=== PATIENT | female | born 2005 | race Caucasian/White ===

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

== ENCOUNTER 2023-02-17 11:10 | Emergency (ER) | payer MEDICAID, SELFPAY ==
[2023-02-17 11:24] VITALS: BP 145/96; PULSE 77; RESP 16; TEMP 36.9; O2SAT 99
--- NOTE | 2023-02-17 12:02 | ED.URI ---
HPI - URI/Sore Throat General Chief Complaint: Upper Respiratory Infection Stated Complaint: fever,headache,stuffy nose,throwing up Time Seen by Provider: 02/17/23 12:03 Source: patient and RN notes reviewed Mode of arrival: ambulatory Limitations: no limitations History of Present Illness HPI Narrative: 17 y/o female presented for c/o sore throat, headache, nasal congestion and nausea/vomiting over the past 4 days. Last emesis was this morning. Tolerating fluids and foods without difficulty. Maintaining secretions. Taking over the counter flu medication. Reports sister with similar symptoms last week. MD elicited complaint: cough Related Data Allergies Allergy/AdvReac Type Severity Reaction Status Date / Time No Known Allergies Allergy Mild Verified 02/17/23 11:16 Review of Systems Review of Systems: CONSTITUTIONAL: Endorses malaise, denies chills, sweats, fever EYES: Denies visual changes, redness, or discharge ENT: Reports rhinorrhea, congestion, sinus pain, otalgia, sore throat CARDIOVASCULAR: Denies chest pain, palpitations, edema RESPIRATORY: Reports cough, post nasal drainage. Denies dyspnea GASTROINTESTINAL: Reports nausea, vomiting Denies abdominal pain, diarrhea SKIN: Denies rash or itching MUSCULOSKELETAL: Endorses myalgia NEUROLOGIC: Reports headache PMFSH Past Medical History Medical History Pneumonia Strep pharyngitis Exam Narrative: GENERAL: Ill-appearing, nontoxic no acute distress. HEAD: Normocephalic EYES: conjunctivae clear ENT: Mucous membranes moist. TM pearly dutton with dull light reflex bilaterally; no tragal tenderness. slightly muffled voice, oropharynx erythematous with tonsillar swelling 3+ and exudate, no drooling, no hoarseness, no trismus, uvula midline. No tripod positioning, soft palate or pharyngeal wall bulging NECK: Supple. bilateral anterior cervical lymphadenopathy CHEST: Clear to auscultation, breath sounds equal. No wheezing, rhonchi, rales, or stridor. No respiratory distress, speaks in full sentences. HEART: Regular rate and rhythm. No murmur heard. SKIN: Warm, dry, no rash. NEURO: Alert and oriented x3. PSYCH: Normal mood and affect Course Course Emergency Course: Patient is aware of diagnosis, understands and agrees to treatment plan. Anticipatory guidance given. Patient agrees to follow-up as directed and is aware of reasons to seek care at the emergency department. Portions of this record may have been created with voice recognition software Level of Care: Express Care Visit Vital Signs Vital signs: Vital Signs Temperature 98.5 F 02/17/23 11:24 Pulse Rate 77 02/17/23 11:24 Respiratory Rate 16 02/17/23 11:24 Blood Pressure 145/96 H 02/17/23 11:24 Pulse Oximetry 99 02/17/23 11:24 Oxygen Delivery Room Air 02/17/23 11:24 Temperature 98.5 F 02/17/23 11:24 Pulse Rate 77 02/17/23 11:24 Respiratory Rate 16 02/17/23 11:24 Blood Pressure 145/96 H 02/17/23 11:24 Pulse Oximetry 99 02/17/23 11:24 Oxygen Delivery Room Air 02/17/23 11:24 reviewed MDM - URI/Sore Throat MDM Narrative Medical decision making narrative: Negative strep, COVID, flu reviewed with patient. Will treat for strep based on PE and CC. Discussed physical exam findings. Advised supportive measures and signs/symptoms to go to the ER. Pt is appropriate for outpt treatment and f/u. Differential Diagnosis Differential diagnosis: Likely upper respiratory infection, sinusitis and viral infection Lab Data Labs: Lab Results 02/17/23 Range/Units 11:28 POC SARS CoV-2 Ag Negative (Negative) Influenza A Screen Negative Reference Range: Negative Influenza B Screen Negative Reference Range: Negative Strep Screen Presumptive Negative
== END 2023-02-17 12:14 | disposition home or self-care (01) ==
PROVIDERS: Emergency Provider Nurse Practitioner Family
DX: J06.9 Acute upper respiratory infection, unspecified (principal); Z20.822 Contact with and (suspected) exposure to COVID-19
CPT/HCPCS: 87081; 87426; 87804; 87880; 99213; C9803; G0463

== ENCOUNTER 2023-10-13 13:13 | Emergency (ER) | payer OTHER, SELFPAY ==
[2023-10-13 13:31] VITALS: BP 133/81; PULSE 67; RESP 16; TEMP 37.4; O2SAT 99
[2023-10-13 13:38] LABS: EDUABILI Negative; EDUABLOOD 3+; EDUACOLOR1 Yellow; EDUAGLUCOSE Negative; EDUAKETONE Trace; EDUALEUKO 3+; EDUANITRATE Negative; EDUAPROTEIN 2+; EDUAUROBILI 0.2
--- NOTE | 2023-10-13 13:45 | ED.FEMALEGU ---
HPI - Female Genitourinary General Chief complaint: Urogenital-Female Stated complaint: urinary issue Time Seen by Provider: 10/13/23 13:41 Source: patient and RN notes reviewed Mode of arrival: ambulatory Limitations: no limitations History of Present Illness HPI Narrative: Patient presents today complaining of dysuria, suprapubic pain, frequency since this morning. Denies hematuria, fever, back pain, or any additional symptoms. She has been taking ibuprofen without relief. No recent antibiotic use. Related Data Allergies Allergy/AdvReac Type Severity Reaction Status Date / Time No Known Allergies Allergy Mild Verified 02/17/23 11:16 Review of Systems Review of Systems: CONSTITUTIONAL: Denies body aches, fever, chills, or sweats. EYES: Denies visual changes, redness, or discharge. ENT: Denies rhinorrhea, congestion, sore throat, or otalgia. CARDIOVASCULAR: Denies chest pain, palpitations, or edema. RESPIRATORY: Denies cough or dyspnea. GASTROINTESTINAL: Denies nausea, vomiting, or diarrhea.+ suprapubic pain GENITOURINARY: + dysuria, frequency SKIN: Denies rash, itching, or wounds. MUSCULOSKELETAL: Denies back pain, joint pain, or myalgia. NEUROLOGIC: Denies headache, numbness, tingling, or weakness. PSYCH: Denies depression or anxiety. [facility] Past Medical History Medical History Pneumonia Strep pharyngitis Comments At time of signature, I have reviewed and agree with nursing past medical, surgical, social and family history unless otherwise noted. Please see nursing chart for further information. There is no relevant family history pertinent to the presenting complaint Exam Narrative: GENERAL: Well-appearing, well-nourished, and in no acute distress. HEAD: Normocephalic, atraumatic. EYES: EOMI. No redness or drainage. Conjunctivae normal. ENT: Mucous membranes pink and moist. NECK: Normal AROM. CHEST: No respiratory distress. Clear to auscultation. HEART: Regular rate and rhythm. No murmur appreciated. ABDOMEN: Soft,nondistended, normal active bowel sounds.+ suprapubic tenderness.-CVAT EXTREMITIES: Normal range of motion. No edema. SKIN: Warm, dry, no rash. Capillary refill normal. Normal skin turgor. NEURO: No focal deficits. Alert and oriented x3. Gait steady. PSYCH: Normal affect. No signs of depression or anxiety. Course Course Level of Care: Express Care Visit Vital Signs Vital signs: Vital Signs Temperature 99.3 F 10/13/23 13:31 Pulse Rate 67 10/13/23 13:31 Respiratory Rate 16 10/13/23 13:31 Blood Pressure 133/81 10/13/23 13:31 Pulse Oximetry 99 10/13/23 13:31 Oxygen Delivery Room Air 10/13/23 13:31 Temperature 99.3 F 10/13/23 13:31 Pulse Rate 67 10/13/23 13:31 Respiratory Rate 16 10/13/23 13:31 Blood Pressure 133/81 10/13/23 13:31 Pulse Oximetry 99 10/13/23 13:31 Oxygen Delivery Room Air 10/13/23 13:31 Reviewed MDM - Female Genitourinary MDM Narrative Medical decision making narrative: Urinalysis is consistent with UTI. Prescription for Augmentin sent to pharmacy. Anticipatory guidance and ED precautions given Differential Diagnosis Differential diagnosis: Likely urinary tract infection, vaginitis and cystitis Lab Data Attestation: I reviewed the patient's lab results. Labs: Lab Results 10/13/23 Range/Units 13:36 POC Urine Color Yellow POC Urine Clarity Pending POC Urine pH 6.0 POC Ur Specif Wilson 1.030 POC Urine Protein 2+ POC Ur Glucose (UA) Negative POC Urine Ketones Trace POC Urine Blood 3+ POC Urine Nitrite Negative POC Urine Bilirubin Negative POC Urine Urobilinogen 0.2 POC U Leukocyte Esteras 3+ Misc Test Comment None Critical Care Time Critical Care Time Critical Care Time: No Discharge Plan Discharge Clinical Impression: Urinary tract infection Qualifiers: Urinary tract infection t
== END 2023-10-13 13:52 | disposition home or self-care (01) ==
PROVIDERS: Emergency Provider Nurse Practitioner
DX: N30.01 Acute cystitis with hematuria (principal); B95.7 Other staphylococcus as the cause of diseases classified elsewhere
CPT/HCPCS: 81003; 87077; 87086; 87088; 99213; G0463

== ENCOUNTER 2023-12-05 16:21 | Emergency (ER) | payer OTHER, SELFPAY ==
[2023-12-05 16:49] VITALS: BP 151/91; PULSE 83; RESP 16; TEMP 36.5; O2SAT 99
--- NOTE | 2023-12-05 17:57 | ED.GENADULT ---
HPI - General Adult General Chief complaint: Upper Respiratory Infection Stated complaint: sweating,throwing up,HERNANDEZ, body aches Source: patient Mode of arrival: ambulatory Limitations: no limitations History of Present Illness HPI narrative: Patient presents for evaluation of sick symptoms since yesterday. Symptoms include fever, chills, sore throat, bilateral otalgia, nausea and vomiting. No cough, shortness of breath or diarrhea. Her sister currently has COVID and they live with one another. She does vape. She tried taking OTC cough and cold medication without much improvement thereafter. Related Data Allergies Allergy/AdvReac Type Severity Reaction Status Date / Time No Known Allergies Allergy Mild Verified 12/05/23 16:56 Review of Systems Review of Systems: CONSTITUTIONAL: Reports fever and chills EYES: Denies visual changes, redness, or discharge. ENT: Reports sore throat and bilateral otalgia CARDIOVASCULAR: Denies chest pain, palpitations, or edema. RESPIRATORY: Denies cough or dyspnea. GASTROINTESTINAL: Reports nausea and vomiting. Denies diarrhea GENITOURINARY: Denies dysuria or hematuria. SKIN: Denies rash or itching. MUSCULOSKELETAL: Denies back pain, joint pain, or myalgia. NEUROLOGIC: Denies headache, numbness, dizziness, or weakness. PSYCHIATRIC: Denies anxiety or depression. [facility] Past Medical History Medical History Pneumonia Strep pharyngitis Surgical History Surgical History No pertinent past surgical history Family History Family History Mother Family history non-contributory Social History Social History Smoking status: Current every day smoker Tobacco type: e-cigarettes/vaping Substance use: never Living arrangements: with family Gender identity (if verbalized by the patient): Female Spiritual care concerns: No Exam Narrative: GENERAL: Well-appearing, well-nourished, and in no acute distress. HEAD: Normocephalic, atraumatic. EYES: PERRLA and EOMI. ENT: Nares clear, no rhinorrhea or epistaxis. Mucous membranes moist. Posterior pharyngeal erythema without exudate. Uvula is midline. Left tympanic membrane is bulging. NECK: Supple. No adenopathy or masses. No carotid bruits or JVD CHEST: Clear to auscultation. No respiratory distress. No wheezes rales or rhonchi HEART: Regular rate and rhythm. No murmur heard. Normal peripheral pulses. ABDOMEN: Soft, nontender, nondistended, normal active bowel sounds. EXTREMITIES: Normal range of motion. No edema. SKIN: Warm, dry, no rash. NEURO: No focal deficits. Alert and oriented x3. PSYCH: Normal mood and affect. Course Course Emergency Course: This is a 17-year-old female who presented for evaluation of sick symptoms after recent COVID exposure. COVID here was negative. Advised that she recheck her test in the coming days at home. I will provide her with a prescription for Zofran. She does have evidence of otitis media so will discharge with Augmentin. Follow-up with primary provider. Go to the ER for worsening symptoms. Patient in agreement with plan of care. Level of Care: Express Care Visit Vital Signs Vital signs: Vital Signs Temperature 36.5 C 12/05/23 16:49 Pulse Rate 83 12/05/23 16:49 Respiratory Rate 16 12/05/23 16:49 Blood Pressure 151/91 H 12/05/23 16:49 Pulse Oximetry 99 12/05/23 16:49 Oxygen Delivery Room Air 12/05/23 16:49 Temperature 36.5 C 12/05/23 16:49 Pulse Rate 83 12/05/23 16:49 Respiratory Rate 16 12/05/23 16:49 Blood Pressure 151/91 H 12/05/23 16:49 Pulse Oximetry 99 12/05/23 16:49 Oxygen Delivery Room Air 12/05/23 16:49 Medical Decision Making Vital Signs Vital Signs: Vital Signs T
== END 2023-12-05 18:00 | disposition home or self-care (01) ==
PROVIDERS: Emergency Provider Nurse Practitioner
DX: H66.92 Otitis media, unspecified, left ear (principal); Z20.822 Contact with and (suspected) exposure to COVID-19; F17.290 Nicotine dependence, other tobacco product, uncomplicated
CPT/HCPCS: 87426; 99213; G0463

== ENCOUNTER 2024-01-31 10:42 | Emergency (ER) | payer OTHER, SELFPAY ==
[2024-01-31 10:50] VITALS: BP 140/87; PULSE 77; RESP 20; TEMP 36.7; O2SAT 100
--- NOTE | 2024-01-31 10:57 | ED.FEMALEGU ---
HPI - Female Genitourinary General Chief complaint: Urogenital-Female Stated complaint: UTI Time Seen by Provider: 01/31/24 11:30 Source: patient and RN notes reviewed Mode of arrival: ambulatory Limitations: no limitations History of Present Illness HPI Narrative: 18-year-old female presents with concern for day history of urine frequency and dysuria. She reports some suprapubic pressure. She denies fever, body aches, chills, back pain, abdominal pain, nausea or vomiting. She denies hematuria MD elicited complaint: UTI Related Data Allergies Allergy/AdvReac Type Severity Reaction Status Date / Time No Known Allergies Allergy Mild Verified 01/31/24 10:56 Review of Systems Review of Systems: CONSTITUTIONAL: Denies malaise, chills, sweats, or fever. CARDIOVASCULAR: Denies chest pain, palpitations, or edema. RESPIRATORY: Denies cough or dyspnea. GASTROINTESTINAL: Denies abdominal pain, nausea, vomiting, diarrhea GENITOURINARY: Reports dysuria, frequency, suprapubic pressure. Denies flank pain or hematuria. SKIN: Denies rash or itching. MUSCULOSKELETAL: Denies back pain or myalgia. All systems reviewed & are unremarkable except as noted in HPI and below PMFSH Past Medical History Medical History Pneumonia Strep pharyngitis Surgical History Surgical History No pertinent past surgical history Family History Family History Mother Family history non-contributory Social History Social History Smoking status: Current every day smoker Tobacco type: e-cigarettes/vaping Substance use: never Living arrangements: with family Gender identity (if verbalized by the patient): Female Spiritual care concerns: No Comments At time of signature, agree with nursing past medical, surgical, social and family history. There is no relevant family history pertinent to the presenting complaint Exam Narrative: GENERAL: Well-appearing, well-nourished, and in no acute distress. HEAD: Normocephalic. EYES: PERRLA, conjunctivae clear. NECK: Supple. No lymphadenopathy CHEST: Clear to auscultation. No respiratory distress. HEART: Regular rate and rhythm. ABDOMEN: Soft, nontender upon palpation, nondistended, normal active bowel sounds, no palpable or pulsatile masses, no guarding. No CVA tenderness SKIN: Warm, dry, no rash. NEURO: Alert and oriented x3. PSYCH: Normal mood and affect Course Course Emergency Course: Patient is aware of diagnosis, understands and agrees to treatment plan. Anticipatory guidance given. Patient agrees to follow-up as directed and is aware of reasons to seek care at the emergency department. Portions of this record may have been created with voice recognition software Level of Care: Express Care Visit Vital Signs Vital signs: Vital Signs Temperature 98.1 F 01/31/24 10:50 Pulse Rate 77 01/31/24 10:50 Respiratory Rate 20 01/31/24 10:50 Blood Pressure 140/87 01/31/24 10:50 Pulse Oximetry 100 01/31/24 10:50 Oxygen Delivery Room Air 01/31/24 10:50 Temperature 98.1 F 01/31/24 10:50 Pulse Rate 77 01/31/24 10:50 Respiratory Rate 20 01/31/24 10:50 Blood Pressure 140/87 01/31/24 10:50 Pulse Oximetry 100 01/31/24 10:50 Oxygen Delivery Room Air 01/31/24 10:50 Reviewed. MDM - Female Genitourinary MDM Narrative Medical decision making narrative: Exam findings and UA show no acute concerns or changes; patient is non-toxic appearing and is in no distress. Patient is appropriate for outpatient treatment and follow-up. Differential Diagnosis Differential diagnosis: Likely urinary tract infection and cystitis Critical Care Time Critical Care Time Critical Care Time: No Discharge Plan Discharge Clini
[2024-01-31 11:43] LABS: BEDSIDEPREGUCG Negative (Negative)
== END 2024-01-31 11:41 | disposition home or self-care (01) ==
PROVIDERS: Emergency Provider Nurse Practitioner
DX: R30.0 Dysuria (principal); R35.0 Frequency of micturition; F17.290 Nicotine dependence, other tobacco product, uncomplicated
CPT/HCPCS: 81025; 87086; 99213; G0463

== ENCOUNTER 2024-03-07 09:25 | Emergency (ER) | payer OTHER, SELFPAY ==
--- NOTE | 2024-03-07 09:28 | ED_ITS ---
HPI - URI/Sore Throat General Chief Complaint: Upper Respiratory Infection Stated Complaint: Vomiting/Cough Time Seen by Provider: 03/07/24 09:45 Source: patient Mode of arrival: ambulatory Limitations: no limitations History of Present Illness HPI Narrative: Nona is a 18-year-old female patient presenting to the clinic today with complaints of feeling feverish, vomiting, sore throat, diarrhea, runny nose, and cough x2 days. She denies any chest pain or shortness of breath. MD elicited complaint: cough, sore throat and nasal congestion Related Data Allergies Allergy/AdvReac Type Severity Reaction Status Date / Time No Known Allergies Allergy Mild Verified 03/07/24 09:43 Review of Systems Review of Systems: Pertinent positives per HPI. Patient denies any rash, headache, visual changes, dizziness, shortness of breath, chest pain, palpitations, constipation, abdominal pain, or any urinary issues. [facility] Past Medical History Medical History Pneumonia Strep pharyngitis Surgical History Surgical History No pertinent past surgical history Family History Family History Mother Family history non-contributory Social History Social History Smoking status: Current every day smoker Tobacco type: e-cigarettes/vaping Substance use: never Living arrangements: with family Gender identity (if verbalized by the patient): Female Spiritual care concerns: No Comments At the time of my signature, I reviewed and agree with the nursing past medical, surgical, social, and family history. There is no relevant family history pertinent to the patient complaint. Exam Narrative: General: Well-developed, obese, in no apparent distress Head: Normocephalic, atraumatic Eyes: Pupils equally round and reactive to light bilaterally, EOM intact, sclera and conjunctive clear, no discharge, lids normal Ears: TMs intact and congested, ear canals clear, no drainage, grossly hearing normal. Nose: Nares patent, clear nasal discharge, no inflammation, no sinus tenderness. Mouth: Oral pharynx red with bilateral tonsillar enlargement without lesions or masses, good dentition, MMM. Neck: Supple, trachea midline, no enlargement of anterior or posterior cervical nodes, no thyroid masses or goiter palpable. Cardio: Regular rate and rhythm, s1 and s2 normal, no murmur appreciated. Resp: Clear to auscultation bilaterally, no rhonchi, rales, wheezing or rubs Abdomen: Soft, pliable, bowel sounds present in all quadrants, non-tender to palpation, no organomegly, no CVAT tenderness. Course Course Emergency Course: Portions of this record may have been created with voice recognition software. Level of Care: Express Care Visit Vital Signs Vital signs: Vital Signs Temperature 36.2 C L 03/07/24 09:43 Pulse Rate 82 03/07/24 09:43 Respiratory Rate 15 03/07/24 09:43 Blood Pressure 159/100 H 03/07/24 09:43 Temperature 36.2 C L 03/07/24 09:47 Pulse Rate 82 03/07/24 09:47 Respiratory Rate 15 03/07/24 09:47 Blood Pressure 159/100 H 03/07/24 09:47 Vital signs reviewed MDM - URI/Sore Throat MDM Narrative Medical decision making narrative: At the time of visit patient is resting comfortably on the exam table. Patient appears to be nontoxic. Labs: COVID, influenza, and strep test were all performed. All testing was negative. We will send strep for culture Plan: I suspect patient has URI/pharyngitis/viral syndrome. Will send in pres cription for Zofran for nausea. Patient may take Imodium as needed for diarrhea as long as there is no blood in his stool. Work note was given. Supportive measures were discussed with the patient and they voiced understanding discharge instructions and agrees to treatment plan. Return precautions reviewed Differential Diagnosis Differential diagnosis: Likely upper respiratory infection, otitis media, sinusitis, viral infection, bronchitis, influenza, pharyngitis and other (COVID) Lab Data Labs: Lab Results 03/07/24 Range/Units 09:59 POC Influenza A Ag Negative (Negative) POC Influenza B Ag Negative (Negative) POC SARS CoV-2 Ag Negative (Negative) POC Grp A Strep Screen Negative (Negative) Discharge Plan Discharge Clinical Impression: Viral infection Upper respiratory infection Qualifiers: URI type: unspecified URI Qualified Code(s): J06.9 - Acute upper respiratory infection, unspecified Pharyngitis Qualifiers: Pharyngitis/tonsillitis etiology: unspecified etiology Qualified Code(s): J02.9 - Acute pharyngitis, unspecified Patient Disposition: Home, Self-Care Condition: Stable Instructions: Antibiotic Form, Pharyngitis (ED), Viral Syndrome (ED), Cold Symptoms (ED) Additional Instructions: COVID, influenza, and strep test were all negative in the clinic today. Take prescription medications only as prescribed-Zofran May take NyQuil/DayQuil for cold/flu symptoms Increase fluids and stay well hydrated Tylenol/motrin for pain/fever Flonase and OTC antihistamines as directed Vicks vapor rub to open sinuses Sinus rinses for congestion Cepacol spray, cough drops, throat lozenges, warm tea with honey/lemon, gargle salt water to soothe throat BRAT diet for diarrhea Clear liquids x 24 hours then advance as tolerated for nausea/vomiting Go to the ED if you develop a worsening in your condition- high fever not controlled by Tylenol or Motrin, dehydration, weakness, lethargy, shortness of breath, or chest pain. Follow up with your PCP in 3-5 days if symptoms persist. Prescriptions: New ondansetron 4 mg tablet,disintegrating 4 mg PO Q6H PRN (Reason: nausea and vomiting) 3 Days Qty: 12 0RF Follow-up/Referrals: PHYSICIAN,[employer] [Primary Care Provider] - Stand Alone Forms: Work/School Release IP Time of Disposition: 10:01 Quality NIHSS Nursing Documentation ED NIHSS nursing documentation: reviewed/agree
[2024-03-07 09:43] VITALS: BP 159/100; PULSE 82; RESP 15; TEMP 36.2
[2024-03-07 09:47] VITALS: BP 159/100; PULSE 82; RESP 15; TEMP 36.2
[2024-03-07 10:01] LABS: EDCOVIDSCREEN Negative (Negative); EDINFLUASCREEN Negative (Negative); EDINFLUBSCREEN Negative (Negative); EDSTREPNEGPOS1 Negative (Negative)
== END 2024-03-07 10:10 | disposition home or self-care (01) ==
PROVIDERS: Emergency Provider Nurse Practitioner Family
DX: B34.9 Viral infection, unspecified (principal); J06.9 Acute upper respiratory infection, unspecified; J02.9 Acute pharyngitis, unspecified; Z20.822 Contact with and (suspected) exposure to COVID-19; F17.290 Nicotine dependence, other tobacco product, uncomplicated
CPT/HCPCS: 87081; 87426; 87804; 87880; 99213; G0463

== ENCOUNTER 2024-05-02 15:46 | Emergency (ER) | payer OTHER, SELFPAY ==
--- NOTE | ~2024-05-02 | XR_ITS ---
EXAMINATION: XR shoulder RT min 2V DATE: 05/02/2024 16:39 INDICATION: Right shoulder pain. TECHNIQUE: 4 views of right shoulder were obtained. COMPARISON: None. FINDINGS: Alignment is normal. No fracture. Joint spaces are normal. IMPRESSION: 1. Normal right shoulder. Reviewed, dictated and finalized at location B. SUPERVISOR IMPRESSION: 1. Normal right shoulder.
--- NOTE | 2024-05-02 15:49 | ED.GENADULT ---
HPI - General Adult General Chief complaint: Extremity Problem,Nontraumatic Stated complaint: right shoulder pain Time Seen by Provider: 05/02/24 16:05 Source: patient, RN notes reviewed and old records reviewed Mode of arrival: ambulatory Limitations: no limitations History of Present Illness HPI narrative: 18 female presents to the [facility] with 2-2 and half weeks of right shoulder generalized discomfort. Patient reports discomfort with movement. 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 Has taken ibuprofen and Tylenol, use the [id number] Lidoderm patches. Requesting a work note. Denies trauma Treatments prior to arrival: NSAID Related Data Home Medications ?Medication ?Instructions ?Recorded ?Confirmed ?Last Taken ?Type albuterol sulfate 90 mcg/actuation inhalation 05/02/24 Unknown History aerosol inhaler Allergies Allergy/AdvReac Type Severity Reaction Status Date / Time No Known Allergies Allergy Mild Verified 05/02/24 15:53 Review of Systems Review of Systems: All systems reviewed & are unremarkable except as noted in HPI and below Constitutional: Constitutional: Reports no additional constitutional complaints ENT: Reports system reviewed and no additional complaints, except as documented Cardiovascular: Cardiovascular: Reports no additional cardiovascular complaints, Denies chest pain and Denies dyspnea Respiratory: Respiratory: Reports no additional respiratory complaints, Denies chest congestion, Denies cough and Denies dyspnea Musculoskeletal: Musculoskeletal: Reports as per HPI, Denies back pain, Denies myalgias, Reports arthralgias, Denies joint swelling, Denies loss of height, Denies neck pain and Denies numbness Integumentary/Breasts: Skin/Breast: Reports system reviewed and no additional complaints, except as docu PMFSH Past Medical History Medical History Strep pharyngitis Pneumonia Surgical History Surgical History No pertinent past surgical history Family History Family History Mother Family history non-contributory Social History Social History Smoking status: Current every day smoker Tobacco type: e-cigarettes/vaping Substance use: never Living arrangements: with family Gender identity (if verbalized by the patient): Female Spiritual care concerns: No Comments At the time of my signature, I reviewed and agree with the nursing past medical, surgical, social, and family history. There is no relevant family history pertinent to the patient complaint. Exam Const: General: cooperative, healthy appearing, comfortable, no acute distress, well developed, alert and well nourished Nutritional Appearance: well nourished and obese Orientation/consciousness: patient oriented x3 Limitations: no limitations HENMT: Head: normal to inspection Eyes: General: appearance normal, both eyes and all related structures Alignment and Position: alignment normal Neck: Neck: normal visual inspection, full ROM, no lymphadenopathy and no meningeal signs Chest: Chest palpation & inspection: normal inspection of the chest Resp: Effort & Inspection: normal respiratory effort and able to speak in complete sentences Auscultation: clear to auscultation bilaterally, no crackles, no rales, no rhonchi and no wheezes Cardio: Rate: regular rate Back/Spine/Pelvis: Back: no CVA tenderness Skin: General skin exam: normal color and no rashes or lesions noted Neuro: General: patient oriented x3, gait normal, moves all extremities and no meningeal signs Cognition (Neuro): normal cognition Speech: normal speech Gait exam (Neuro): Normal gait present Extrem: General: normal to inspection, full ROM, capillary refill normal and normal gait Right upper extremity: normal capillary refill, shoulder/upper arm tenderness (Generalized shoulder); no swelling, no lacerations, no ecchymosis, no crepitus, no foreign bodies, no penetrating wound and no deformity, elbow/forearm normal to inspection, wrist normal to inspection, normal vascular exam and radial pulse present and Extremity exam: right hand normal to inspection and neuromotor exam normal wrist extension normal, thumb opposition normal, thumb IP flexion normal, thumb ADduction normal and fingers 2-5 ABduction normal Psych: Appearance: grossly normal and well kempt Mental Status: mental status grossly normal Speech and movement: Normal speech and movement present and Clear speech present Affect: normal affect Attitude: cooperative Course Course Level of Care: Express Care Visit Vital Signs Vital signs: Vital Signs Temperature 98.1 F 05/02/24 15:56 Pulse Rate 72 05/02/24 15:56 Respiratory Rate 20 05/02/24 15:56 Blood Pressure 133/78 05/02/24 15:56 Pulse Oximetry 98 05/02/24 15:56 Oxygen Delivery Room Air 05/02/24 15:56 Temperature 98.1 F 05/02/24 15:56 Pulse Rate 72 05/02/24 15:56 Respiratory Rate 20 05/02/24 15:56 Blood Pressure 133/78 05/02/24 15:56 Pulse Oximetry 98 05/02/24 15:56 Oxygen Delivery Room Air 05/02/24 15:56 Reviewed Medical Decision Making MDM Narrative Medical decision making narrative: Patient sitting comfortably in exam room. Nontoxic, vitals stable. Patient in no acute distress Patient presents for right shoulder pain, generalized, no trauma. Symptoms times 2-2 and half weeks. X-ray shows no acute findings. Patient appropriate for outpatient treatment with close follow-up. Discharge instructions reviewed with patient, as well as provided in writing per nursing staff. The instructions also include specific and strict return/GO TO THE ER as well as f/u information. All questions have been answered, and the patient deny any further questions with discharge and discharge plan. Some parts of this dictation were generated by voice recognition software and may contain typographical and/or grammatical inaccuracies. Differential Diagnosis Differential Diagnosis: Muscle strain, fracture, dislocation, Medical Records Medical records reviewed: Yes I reviewed the external patient's medical records. Vital Signs Vital Signs: Vital Signs Temperature 98.1 F 05/02/24 15:56 Pulse Rate 72 05/02/24 15:56 Respiratory Rate 20 05/02/24 15:56 Blood Pressure 133/78 05/02/24 15:56 Pulse Oximetry 98 05/02/24 15:56 Oxygen Delivery Room Air 05/02/24 15:56 Temperature 98.1 F 05/02/24 15:56 Pulse Rate 72 05/02/24 15:56 Respiratory Rate 20 05/02/24 15:56 Blood Pressure 133/78 05/02/24 15:56 Pulse Oximetry 98 05/02/24 15:56 Oxygen Delivery Room Air 05/02/24 15:56 Reviewed Lab Data Lab results reviewed: Yes I reviewed the patient's lab results. Labs: Reviewed Critical Care Time Critical Care Time Critical Care Time: No Discharge Plan Discharge Clinical Impression: Right shoulder strain Qualifiers: Encounter type: initial encounter Qualified Code(s): S46.911A - Strain of unspecified muscle, fascia and tendon at shoulder and upper arm level, right arm, initial encounter Patient Disposition: Home, Self-Care Condition: Stable Instructions: Antibiotic Form, Shoulder Sprain (ED) Additional Instructions: Your Xray did not show a fracture. Ice should be applied to help reduce swelling. It can be used for 20 to 30 minutes, every 2-3 hours while awake. Do not apply ice directly to your skin. You can alternate ibuprofen 600mg and Tylenol 650mg every 4 hours as needed for pain Please schedule a follow-up visit with your personal physician for further evaluation and treatment within 2 weeks especially if symptoms persist. For new or worsening symptoms go directly to the emergency room Patient Language: Syriac Prescriptions: New ibuprofen 600 mg tablet 600 mg PO TID PRN (Reason: fever or pain) Qty: 30 0RF baclofen 10 mg tablet 10 mg PO TID PRN (Reason: muscle pain) Qty: 10 0RF No Action albuterol sulfate 90 mcg/actuation HFA aerosol inhaler INHALATION Follow-up/Referrals: UNKNOWN,DOCTOR [Primary Care Provider] - Stand Alone Forms: Work/School Release IP Time of Disposition: 16:57
[2024-05-02 15:56] VITALS: BP 133/78; PULSE 72; RESP 20; TEMP 36.7; O2SAT 98
== END 2024-05-02 17:00 | disposition home or self-care (01) ==
PROVIDERS: Emergency Provider Nurse Practitioner
DX: S46.911A Strain of unspecified muscle, fascia and tendon at shoulder and upper arm level, right arm, initial encounter (principal); X58.XXXA Exposure to other specified factors, initial encounter; F17.290 Nicotine dependence, other tobacco product, uncomplicated
CPT/HCPCS: 73030; 99213; G0463

== ENCOUNTER 2025-02-17 08:49 | Emergency (ER) | payer OTHER, SELFPAY ==
[2025-02-17 08:57] VITALS: BP 110/66; PULSE 102; RESP 18; TEMP 36.4; O2SAT 100
--- NOTE | 2025-02-17 09:23 | ED.FEMALEGU ---
HPI - Female Genitourinary General Chief complaint: Urogenital-Female Stated complaint: UTI Time Seen by Provider: 02/17/25 09:19 Source: patient and RN notes reviewed Mode of arrival: ambulatory Limitations: no limitations History of Present Illness HPI Narrative: 19-year-old female history of lymphoma presents with concern of for urinary tract infection. Patient undergoing treatment for lymphoma. She reports she has had 3 UTIs in the past 2 months that she has been treated for in [facility]. She reports symptoms have resolved after each of those treatments. She reports several day history of urine frequency, urgency, dysuria and suprapubic discomfort. She denies fever, body aches, chills, sweats. Denies nausea or vomiting. MD elicited complaint: UTI Related Data Home Medications ?Medication ?Instructions ?Recorded ?Confirmed ?Last Taken ?Type acyclovir 400 mg tablet mg 02/17/25 Unknown History apixaban 5 mg tablet (Eliquis) mg 02/17/25 Unknown History Allergies Allergy/AdvReac Type Severity Reaction Status Date / Time No Known Allergies Allergy Mild Verified 02/17/25 09:17 Review of Systems Review of Systems: CONSTITUTIONAL: Denies malaise, chills, sweats, or fever. CARDIOVASCULAR: Denies chest pain, palpitations, or edema. RESPIRATORY: Denies cough or dyspnea. GASTROINTESTINAL: Denies abdominal pain, nausea, vomiting, diarrhea GENITOURINARY: Reports dysuria, frequency, urgency, suprapubic pressure. Denies flank pain or hematuria. SKIN: Denies rash or itching. MUSCULOSKELETAL: Denies back pain or myalgia. All systems reviewed & are unremarkable except as noted in HPI and below PMFSH Past Medical History Medical History Strep pharyngitis Pneumonia Surgical History Surgical History No pertinent past surgical history Family History Family History Mother Family history non-contributory Social History Social History Tobacco type: e-cigarettes/vaping Substance use: never Living arrangements: with family Gender identity (if verbalized by the patient): Female Spiritual care concerns: No Comments At time of signature, agree with nursing past medical, surgical, social and family history. There is no relevant family history pertinent to the presenting complaint Exam Narrative: GENERAL: Well-appearing, well-nourished, and in no acute distress. HEAD: Normocephalic. EYES: PERRLA, conjunctivae clear. NECK: Supple. No lymphadenopathy CHEST: Clear to auscultation. No respiratory distress. HEART: Regular rate and rhythm. ABDOMEN: Soft, suprapubic tenderness. No CVA tenderness SKIN: Warm, dry, no rash. NEURO: Alert and oriented x3. PSYCH: Normal mood and affect Course Course Emergency Course: Patient is aware of diagnosis, understands and agrees to treatment plan. Anticipatory guidance given. Patient agrees to follow-up as directed and is aware of reasons to seek care at the emergency department. Portions of this record may have been created with voice recognition software Level of Care: Express Care Visit Vital Signs Vital signs: Vital Signs Temperature 97.6 F 02/17/25 08:57 Pulse Rate 102 H 02/17/25 08:57 Respiratory Rate 18 02/17/25 08:57 Blood Pressure 110/66 02/17/25 08:57 Pulse Oximetry 100 02/17/25 08:57 Oxygen Delivery Room Air 02/17/25 08:57 Temperature 97.6 F 02/17/25 08:57 Pulse Rate 102 H 02/17/25 08:57 Respiratory Rate 18 02/17/25 08:57 Blood Pressure 110/66 02/17/25 08:57 Pulse Oximetry 100 02/17/25 08:57 Oxygen Delivery Room Air 02/17/25 08:57 Reviewed. MDM - Female Genitourinary MDM Narrative Medical decision making narrative: Exam findings and UA show no acute concerns or changes; patient is non-toxic appearing and is in no distress. Patient is appropriate for outpatient treatment and follow-up. Differential Diagnosis Differential diagnosis: Likely urinary tract infection and cystitis Critical Care Time Critical Care Time Critical Care Time: No Discharge Plan Discharge Clinical Impression: Urinary tract infection Patient Disposition: Home Condition: Stable Instructions: Antibiotic Form, Urinary Tract Infection in Women (ED) Additional Instructions: We will send a urine culture to the lab; if the culture identifies an organism that the prescribed antibiotic will not treat, you will receive a phone call from an urgent care staff member and an appropriate antibiotic will be prescribed. -Your symptoms should begin to improve within a day of starting antibiotics. But you should finish all the antibiotic pills you get. Otherwise your infection might come back. -Also recommend: increase water intake. Tylenol/ibuprofen as needed for pain or fever -Follow-up with your primary care provider for urine recheck or seek ER visit if condition worsens with high fever, nausea, vomiting and severe back pain. Patient Language: Luxembourgish Prescriptions: New sulfamethoxazole-trimethoprim 800-160 mg tablet 1 tablet PO Q12H 7 Days Qty: 14 0RF No Action acyclovir 400 mg tablet Eliquis 5 mg tablet Follow-up/Referrals: PHYSICIAN,DIRECTOR OF FOOD AND NUTRITION SERVICES [Primary Care Provider, Internal Medicine] Time of Disposition: 09:28
[2025-02-17 09:26] LABS: EDUAAPPEAR Cloudy; EDUABILI Negative (Negative); EDUABLOOD 2+ (Negative); EDUACOLOR1 Dark; EDUAGLUCOSE Negative (Negative); EDUAKETONE Negative (Negative); EDUALEUKO 3+ (Negative); EDUANITRATE Negative (Negative); EDUAPH 5.5; EDUAPROTEIN 2+ (Negative); EDUASPGRAVITY 1.025; EDUAUROBILI 0.2
== END 2025-02-17 09:36 | disposition home or self-care (01) ==
PROVIDERS: Emergency Provider Nurse Practitioner
DX: N39.0 Urinary tract infection, site not specified (principal); F17.290 Nicotine dependence, other tobacco product, uncomplicated; C85.90 Non-Hodgkin lymphoma, unspecified, unspecified site; Z79.01 Long term (current) use of anticoagulants
CPT/HCPCS: 81003; 87086; 87186; 99213; G0463